=== PATIENT | female | born 1975 | race Caucasian/White ===

== ENCOUNTER 2016-08-28 10:11 | Emergency (ER) | payer MEDICAID ==
[~2016-08-28] VITALS: Ht 157.5 cm; Wt 70.5 kg
[2016-08-28 10:24] VITALS: Ht 157.5 cm; Wt 70.5 kg
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
[2016-08-28] MEDS ORDERED: NAPR-260 PO (13:31)
[2016-08-28] MEDS ORDERED: HYDR-906 PO (13:31)
[2016-08-28] MEDS ORDERED: CYCL-319 PO (13:31)
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
== END 2016-08-28 13:38 | disposition home or self-care (01) ==
LOC: FTE 10:11
DX: S19.9XXA Unspecified injury of neck, initial encounter (principal); Y08.89XA Assault by other specified means, initial encounter
CPT/HCPCS: 72040; 72125; Z7502